=== PATIENT | male | born 1965 | race Caucasian/White ===

== ENCOUNTER → 2021-01-12 | Outpatient (CLI) | payer OTHER ==
[~2021-01-12] MED LIST: ALL DAY ALLERGY10 M2 PO; ALLERGY RELIEF10 MG PO; ALLOPURINOL100 MG PO; ARTIFICIAL TEAR30 ML EYEBOTH; BENZOYL PEROXIDE 10% TD; CALCIUM CARBON650 MG PO; CHANTIX1 MG PO; CLINDAMYCIN PHOSPHAT TD; COZAAR100 MG PO; CYANOCOBAL1000 MCG/1 INJ; DAILY VALUE1 EACH PO; DICLOFENAC GEL 1% TOP; ESZOPICLONE1 MG PO; FLONASE 0.05% N16 GM; FLONASE ALLER15.8 ML; HYDROCHLOROTHIA25 MG PO; INDERAL TAB 4040 MG PO; KEFLEX500 MG PO; KETOCONAZOLE120 ML TOP; LAC-DOSE3000 UNIT PO; LACTASE1 GM PO; LUNESTA2 MG PO; METROCREAM 0.7545 GM EXT; METRONIDAZOLE TD; MINIPRESS2 MG PO; NALTREXONE HCL50 MG PO; NEFAZODONE HCL200 MG PO; NORCO 10-325 T1 EACH PO; NORVASC 5 MG TAB5 MG PO; NORVASC10 MG PO; OXYTOCIN; PERCOCET 10-321 EACH PO; PHOS FLUR PO; POTASSIUM CHLO10 ME1 PO; PROSCAR5 MG PO; QUETIAPINE FUMA25 MG PO; REVATIO 20 MG T20 MG PO; SEROQUEL25 MG PO; SERZONE TAB 10100 MG PO; SINGULAIR10 MG PO; TRETINOIN45 G3 TD; VALIUM 10 MG TA10 MG PO; VIAGRA100 MG PO; VITAMIN C 500500 MG PO; VITAMIN D31000 UNI1 PO; VOLTAREN EC 7575 MG PO; VOLTAREN GEL TOP
[2021-01-12 09:16] LABS: HEMOGLOBIN 15.4 gm/dl (14.0-17.5); RED BLOOD COUNT 4.71 M/UL (4.20-5.50); WHITE BLOOD COUNT 4.3 K/UL (4.5-11.0)
[2021-01-12 09:37] LABS: BUN/CREATININE RATIO 11 (0-10)
== END ==
LOC: OPSV2 08:00
PROVIDERS: Podiatrist Foot & Ankle Surgery
DX: Z01.812 Encounter for preprocedural laboratory examination (principal); M25.571 Pain in right ankle and joints of right foot; M24.271 Disorder of ligament, right ankle
CPT/HCPCS: 36415; 80048; 85027

== ENCOUNTER 2021-01-17 08:03 | Day surgery (SDC) | payer MEDICARE ==
[~2021-01-17] VITALS: Ht 182.9 cm; Wt 137.4 kg
== END 2021-01-19 19:00 | disposition home or self-care (01) ==
LOC: OR 08:03 → MED SURG 4 08:03 → OR 09:30 → MED SURG 4 20:15 → OR 01-19 19:00
PROVIDERS: Podiatrist Foot & Ankle Surgery
PROC: 0SGH07Z Fusion of Right Tarsal Joint with Autologous Tissue Substitute, Open Approach (ICD-10-PCS; principal; 2021-01-17 12:00)
PROC: 0SGH04Z Fusion of Right Tarsal Joint with Internal Fixation Device, Open Approach (ICD-10-PCS; principal; 2021-01-17 12:00)
PROC: 3E0T3BZ Introduction of Anesthetic Agent into Peripheral Nerves and Plexi, Percutaneous Approach (ICD-10-PCS; principal; 2021-01-17 12:00)
PROC: 0L8N0ZZ Division of Right Lower Leg Tendon, Open Approach (ICD-10-PCS; principal; 2021-01-17 12:00)
DX: M19.071 Primary osteoarthritis, right ankle and foot (principal); M25.271 Flail joint, right ankle and foot; G89.18 Other acute postprocedural pain; M10.9 Gout, unspecified; I10 Essential (primary) hypertension; R73.03 Prediabetes; G47.33 Obstructive sleep apnea (adult) (pediatric); F43.10 Post-traumatic stress disorder, unspecified; F32.9 Major depressive disorder, single episode, unspecified; M06.9 Rheumatoid arthritis, unspecified; E66.01 Morbid (severe) obesity due to excess calories; Z68.41 Body mass index [BMI] 40.0-44.9, adult; Z88.8 Allergy status to other drugs, medicaments and biological substances; Z79.899 Other long term (current) drug therapy; Z87.891 Personal history of nicotine dependence
CPT/HCPCS: 73610; 76000; 97161; C1713; C1769; J0171; J0690; J1100; J1170; J1650; J1720; J1885; J2001; J2250; J2270; J2405; J2704; J2795; J3010; J3370; J7120; Q4133

== ENCOUNTER → 2021-01-29 | Outpatient (CLI) | payer OTHER | LOC: KOH-I 12:40 | DX: Z47.89 Encounter for other orthopedic aftercare (principal); Z98.1 Arthrodesis status | CPT/HCPCS: 73610 ==

== ENCOUNTER → 2021-02-19 | Outpatient (CLI) | payer MEDICARE ==
[~2021-02-19] MED LIST changes: +ELIQUIS 5 MG TAB5 MG PO; +ELIQUIS5 M1 PO; +ELIQUIS5 MG PO
== END ==
LOC: KOH-I 14:47
DX: M25.571 Pain in right ankle and joints of right foot (principal)
CPT/HCPCS: 73610

== ENCOUNTER → 2021-03-13 | Outpatient (CLI) | payer MEDICARE | LOC: KOH-I 12:57 | DX: M25.571 Pain in right ankle and joints of right foot (principal); M79.671 Pain in right foot; M79.661 Pain in right lower leg | CPT/HCPCS: 73590; 73610; 73650 ==

== ENCOUNTER → 2021-04-30 | Outpatient (CLI) | payer MEDICARE ==
[~2021-04-30] MED LIST changes: -ELIQUIS 5 MG TAB5 MG PO; -ELIQUIS5 M1 PO; -ELIQUIS5 MG PO
== END ==
LOC: KOH-I 13:19
DX: M79.661 Pain in right lower leg (principal)
CPT/HCPCS: 73590; 73610; 73650

== ENCOUNTER 2021-05-02 16:11 | Emergency (ER) | payer MEDICARE ==
[~2021-05-02 16:11] MED LIST changes: -ELIQUIS 5 MG TAB5 MG PO; -ELIQUIS5 M1 PO; -ELIQUIS5 MG PO
[2021-05-02] MEDS ORDERED: ELIQUIS5 M1 PO (19:44)
[2021-05-02] MEDS ORDERED: ELIQUIS5 MG PO (19:44)
[2021-05-02] MEDS ORDERED: ELIQUIS 5 MG TAB5 MG PO (19:48)
== END 2021-05-02 20:19 | disposition home or self-care (01) ==
LOC: ER1 16:11
DX: I82.401 Acute embolism and thrombosis of unspecified deep veins of right lower extremity (principal); Z86.718 Personal history of other venous thrombosis and embolism
CPT/HCPCS: 99283

== ENCOUNTER → 2021-05-02 | Outpatient (CLI) | payer MEDICARE ==
[~2021-05-02] MED LIST changes: +ELIQUIS 5 MG TAB5 MG PO; +ELIQUIS5 M1 PO; +ELIQUIS5 MG PO
== END ==
LOC: EXRD 14:37
DX: I82.401 Acute embolism and thrombosis of unspecified deep veins of right lower extremity (principal); I47.1 Supraventricular tachycardia; I82.811 Embolism and thrombosis of superficial veins of right lower extremity
CPT/HCPCS: 93971

== ENCOUNTER → 2021-05-31 | Outpatient (CLI) | payer MEDICARE ==
[~2021-05-31] MED LIST changes: +ELIQUIS 5 MG TAB5 MG PO; +ELIQUIS5 M1 PO; +ELIQUIS5 MG PO
== END ==
LOC: KOH-I 13:19
DX: M25.571 Pain in right ankle and joints of right foot (principal); M79.661 Pain in right lower leg
CPT/HCPCS: 73590; 73610; 73650

== ENCOUNTER → 2021-07-03 | Outpatient (CLI) | payer OTHER | LOC: KOH-I 13:17 | DX: M25.571 Pain in right ankle and joints of right foot (principal) | CPT/HCPCS: 73610 ==

== ENCOUNTER → 2021-08-07 | Outpatient (CLI) | payer OTHER | LOC: KOH-I 14:36 | DX: S82.891D Other fracture of right lower leg, subsequent encounter for closed fracture with routine healing (principal) | CPT/HCPCS: 73610 ==

== ENCOUNTER → 2021-10-02 | Outpatient (CLI) | payer OTHER | LOC: KOH-I 14:00 | DX: M25.571 Pain in right ankle and joints of right foot (principal) | CPT/HCPCS: 73610 ==

== ENCOUNTER → 2021-11-05 | Outpatient (CLI) | payer OTHER | LOC: KOH-I 08:55 | DX: M25.571 Pain in right ankle and joints of right foot (principal) | CPT/HCPCS: 73610 ==

== ENCOUNTER → 2021-12-20 | Outpatient (CLI) | payer OTHER | LOC: KOH-I 13:12 | DX: M25.571 Pain in right ankle and joints of right foot (principal); M79.672 Pain in left foot; M79.671 Pain in right foot; M24.671 Ankylosis, right ankle; M21.612 Bunion of left foot; M21.611 Bunion of right foot; M20.42 Other hammer toe(s) (acquired), left foot; M20.41 Other hammer toe(s) (acquired), right foot; M19.071 Primary osteoarthritis, right ankle and foot; M19.072 Primary osteoarthritis, left ankle and foot | CPT/HCPCS: 73610; 73630 ==

== ENCOUNTER → 2022-02-19 | Outpatient (CLI) | payer OTHER | LOC: KOH-I 13:05 | DX: M25.571 Pain in right ankle and joints of right foot (principal); M19.071 Primary osteoarthritis, right ankle and foot | CPT/HCPCS: 73610 ==